=== PATIENT | female | born 1945 | race Caucasian/White ===

== ENCOUNTER → 2017-11-21 | Outpatient (CLI) | payer MEDICARE, OTHER ==
[~2017-11-21] MED LIST: ACETAMINOPHEN; ACID REDUCER; BIOTIN PO; GABAPENTIN300 MG PO; IBUPROFEN; LEG CRAMPS; LISINOPRIL-HCT1 EAC2 PO; METANX TABLET1 EACH PO; METFORMIN HCL500 M2 PO; OMEPRAZOLE20 M1 PO; PAROXETINE HCL10 MG PO; TUMS; VITAMIN D32000 UNIT PO; albuterol sulfate NEB
--- NOTE | 2017-11-21 12:31 | Diagnostic Imaging Report ---
PROCEDURE:X-RAY ABDOMEN - KUB COMPARISON:Patients [facility], DX, ABDOMEN-1VIEW (KUB), 06/21/2016, 9:49. INDICATIONS:RENAL STONES FINDINGS: Nonobstructed bowel gas pattern. No radiopaque densities project over the renal shadows, expected course of the ureters or bladder. Stable pelvic phleboliths. Stable degenerative changes in the lumbosacral spine and right hip joint. CONCLUSION: 1. No radiopaque densities project over the genitourinary tract. Omid Clemons M.D. Dictated by: Omid Clemons M.D. on 11/21/2017 at 12:39 Electronically approved by: Omid Clemons M.D. on 11/21/2017 at 12:39
== END ==
LOC: RAD 10:57
PROVIDERS: ATTEND Urology
DX: N20.0 Calculus of kidney (principal)
CPT/HCPCS: 74000

== ENCOUNTER → 2018-04-10 | Outpatient (CLI) | payer MEDICARE, OTHER ==
--- NOTE | 2018-04-10 14:47 | Diagnostic Imaging Report ---
PROCEDURE:X-RAY ABDOMEN - KUB COMPARISON:None. INDICATIONS:CALCULUS OF KIDNEY FINDINGS: There are no dilated loops of bowel to suggest obstruction. There are no masses or abnormal calcifications overlying the urinary tracts. Stable right pelvic phleboliths. There is no evidence of free air. No acute osseous abnormalities are present. CONCLUSION: No radiopaque urinary stones are visualized. Dictated by: Cyrus Elkins M.D. on 04/10/2018 at 14:50 Electronically approved by: Cyrus Elkins M.D. on 04/10/2018 at 14:50
== END ==
LOC: RAD 13:49
PROVIDERS: ATTEND Urology
DX: N20.0 Calculus of kidney (principal)
CPT/HCPCS: 74018

== ENCOUNTER → 2018-09-29 | Outpatient (CLI) | payer MEDICARE ==
--- NOTE | 2018-09-29 12:03 | Diagnostic Imaging Report ---
Exam: Abdominal film Clinical History: History of left-sided kidney stones Comparison: None. DISCUSSION: 2 adjacent 5 mm ovoid hyperdensities project over the mid pole of the right renal shadow. No calcifications project over the renal shadow or expected ureteral courses. Multiple round pelvic calcifications likely represent phleboliths. No mass effect or organomegaly. Bowel gas pattern shows no dilated, air-filled loops of bowel. Regional skeletal structures intact. Advanced degenerative osteoarthrosis of the right hip. 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 Degenerative disc changes of the upper lumbar spine. IMPRESSION: Questionable tandem 5 mm right renal calculi versus overlying bowel contents. Otherwise no plain film evidence of urolithiasis. Signed by: Dr. Dejon Henry M.D. on 09/29/2018 12:00 PM
== END ==
LOC: RAD 10:49
PROVIDERS: ATTEND Urology
DX: N20.0 Calculus of kidney (principal)
CPT/HCPCS: 74018

== ENCOUNTER → 2020-02-29 | Outpatient (CLI) | payer MEDICARE ==
--- NOTE | 2020-02-29 13:35 | Diagnostic Imaging Report ---
EXAM: ABDOMEN-1VIEW (KUB) DATE: 02/29/2020 12:50 PM INDICATION: Calculus of kidney COMPARISON: 11/26/2019 FINDINGS: Bowel gas pattern appears nonobstructive. No pathologically dilated loops of bowel identified. Bowel gas partially obscures renal shadows, limiting evaluation. No radiographically evident renal calculi are appreciated. Stable appearing phleboliths noted within the pelvis. No acute osseous abnormalities identified. IMPRESSION: No radiographically evident renal calculi identified. Signed by: Dr. Kraig Salas MD on 02/29/2020 1:31 PM
== END ==
LOC: RAD 12:43
PROVIDERS: ATTEND Urology
DX: N20.0 Calculus of kidney (principal)
CPT/HCPCS: 74018

== ENCOUNTER → 2020-06-19 | Outpatient (CLI) | payer MEDICARE ==
--- NOTE | 2020-06-19 14:14 | Diagnostic Imaging Report ---
X-ray abdomen KUB History: Follow-up kidney stones Comparison: 02/29/2020 Findings: Nonobstructive bowel gas pattern. No renal or ureteric calculi. No bladder calculi on this exam. Stable pelvic phleboliths. 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 Degenerative changes of the bones and joints. Impression: No urinary calculi on this exam. Signed by: Lokesh Coyle MD on 06/19/2020 2:11 PM
== END ==
LOC: RAD 11:46
PROVIDERS: ATTEND Urology
DX: N20.0 Calculus of kidney (principal)
CPT/HCPCS: 74018

== ENCOUNTER → 2020-12-27 | Outpatient (CLI) | payer MEDICARE | LOC: RAD 13:33 | PROVIDERS: ATTEND Urology | DX: N20.0 Calculus of kidney (principal) | CPT/HCPCS: 74018 ==

== ENCOUNTER → 2021-12-17 | Outpatient (CLI) | payer MEDICARE | LOC: RAD 12:42 | PROVIDERS: ATTEND Urology | DX: N20.0 Calculus of kidney (principal) | CPT/HCPCS: 74018 ==